=== PATIENT | female | born 1990 | race Caucasian/White ===

== ENCOUNTER 2017-10-17 17:22 | Emergency (ER) | payer OTHER ==
[~2017-10-17] VITALS: Ht 167.6 cm; Wt 72.6 kg
[~2017-10-17 17:22] MED LIST: CIPRO500 MG PO; MICROGESTIN FE1 EACH PO; PYRIDIUM200 MG PO; VITAFOL-OB+DHA1 EACH PO
[2017-10-17] MEDS ORDERED: PROGESTERONE200 MG PO (18:22)
[2017-10-17] MEDS ORDERED: CLOMIPHENE CITR50 MG PO (18:22)
== END 2017-10-17 20:30 | disposition home or self-care (01) ==
LOC: ED 17:22
DX: N83.201 Unspecified ovarian cyst, right side (principal); Z79.899 Other long term (current) drug therapy
CPT/HCPCS: 74177; 80053; 81001; 83690; 84703; 85025; 99284; Q9967

== ENCOUNTER → 2018-02-09 | Emergency (ER) | payer BC, OTHER ==
[~2018-02-09] VITALS: Ht 167.6 cm; Wt 72.6 kg
[~2018-02-09] MED LIST changes: +CLOMIPHENE CITR50 MG PO; +PRENATAL FORMU1 EAC2 PO; +PROGESTERONE200 MG PO
== END ==
LOC: ED 11:41
DX: O02.0 Blighted ovum and nonhydatidiform mole (principal)
CPT/HCPCS: 36415; 76801; 76817; 84702; 85025; 86900; 86901; 99284